=== PATIENT | female | born 1960 | race African-American/Black ===

== ENCOUNTER 2021-04-03 11:03 | Inpatient (IN) | payer OTHER ==
[~2021-04-03 11:03] MED LIST: SOLIFENACIN SUCCINATE 5 MG TAB PO SCH
[2021-04-03] MEDS ORDERED: SODIUM CHLORIDE 1,000 ML IV ONE (11:06)
[2021-04-03] MEDS ORDERED: ACETAMINOPHEN 1000 MG/100 ML VIAL IVPB ONE (11:07)
[2021-04-03] MEDS ORDERED: LACTATED RINGERS SOLUTION 1000 ML INFUS.BAG IV ONE (11:22)
[2021-04-03] MEDS ORDERED: VANCOMYCIN 1 GM in D5W (PRE-DOCKED) 1,000 MG/250 ML IVPB ONE (11:24)
[2021-04-03] MEDS ORDERED: PIPERACILLIN/TAZOB 3.375 GM 3.375 GM in DEXTROSE 5%-WATER - 50 ML IVPB ONE (11:25)
[2021-04-03 11:45] LABS: VENOUS BASE EXCESS -7.8 mmol/L (-2-2); VENOUS O2 SATURATION 70.5 % (70-80); VENOUS PCO2 27.4 mmHg (38-52); VENOUS PH 7.367 (7.310-7.410)
[2021-04-03 11:49] LABS: HEMATOCRIT 38.3 % (32.4-45.2); MCH 33.5 pg (25.7-33.7); MCHC 33.8 g/dl (32.0-36.0); MEAN PLT VOLUME 9.9 fl (7.5-11.1); PLATELET COUNT 144 10^3/uL (134-434); RBC 3.87 M/mm3 (3.60-5.2); RDW 13.8 % (11.6-15.6); WHITE BLOOD COUNT 10.3 K/mm3 (4.0-10.0)
[2021-04-03 11:56] LABS: INR 1.18 (0.83-1.09); PROTHROMBIN TIME (PATIENT) 13.8 SEC (9.7-13.0)
[2021-04-03] MEDS ORDERED: VANCOMYCIN 1 GRAM (PRE-DOCKED) 1,000 MG/250 ML BAG IVPB ONE (11:56)
[2021-04-03] MEDS ORDERED: PIPERACILLIN/TAZOB 3.375 GM 3.375 GM/50 ML BAG IVPB ONE ×2 (11:56→19:20)
[2021-04-03 11:59] LABS: ACTIVATED PTT 26.6 SECONDS (25.2-36.5)
[2021-04-03 12:13] LABS: ALBUMIN 3.2 g/dl (3.4-5.0)
[2021-04-03 12:14] LABS: BLOOD UREA NITROGEN 37.1 mg/dL (7-18)
[2021-04-03 12:17] LABS: CREATININE 1.9 mg/dL (0.55-1.3)
[2021-04-03 12:18] LABS: BILIRUBIN,TOTAL 1.4 mg/dL (0.2-1); TOT PROT 7.7 g/dl (6.4-8.2)
[2021-04-03 12:26] LABS: ANISOCYTOSIS 1+; MACROCYTOSIS 1+; PLATELET ESTIMATE DECREASED
[2021-04-03 12:29] LABS: LACTIC ACID 7.2 mmol/L (0.4-2.0)
[2021-04-03] MEDS ORDERED: POTASSIUM CHLORIDE TABS 20 MEQ TABLET.ER (FP) PO ONE (12:42)
[2021-04-03] MEDS ORDERED: POTASSIUM CHLORIDE ORAL LIQUID 20 MEQ/15 ML PO ONE (12:43)
[2021-04-03] MEDS ORDERED: POTASSIUM CHLORIDE ORAL LIQUID 20 MEQ/15 ML ONE (13:21)
[2021-04-03] MEDS ORDERED: SODIUM CHLORIDE 0.9% 500 ML INFUS.BAG IV ONE ×2 (13:41→18:17)
[2021-04-03 13:45] LABS: EPI CELLS 12 /uL (0-25.1); HYALINE CASTS 7 /uL (0-3.1); URINE APPEARANCE CLOUDY; URINE BACTERIA 8666 /uL (0-1359); URINE BILIRUBIN 1+ (NEGATIVE); URINE COLOR DK YELLOW; URINE GLUCOSE (UA) NEGATIVE (NEGATIVE); URINE KETONE TRACE (NEGATIVE); URINE LEUK ESTERASE 2+ (NEGATIVE); URINE NITRITE NEGATIVE (NEGATIVE); URINE PROTEIN 2+ (NEGATIVE); URINE RBC 6 /uL (0-23.9); URINE UROBILINOGEN 0.2 mg/dL (0.2-1.0); URINE WBC 270 /uL (0-25.8)
[2021-04-03 17:40] LABS: LACTIC ACID 7.9 mmol/L (0.4-2.0)
[2021-04-03 18:02] LABS: CALCIUM 8.1 mg/dL (8.5-10.1)
[2021-04-03 18:03] LABS: BLOOD UREA NITROGEN 36.6 mg/dL (7-18)
[2021-04-03 18:06] LABS: CREATININE 1.8 mg/dL (0.55-1.3)
[2021-04-03 19:19] LABS: MAGNESIUM 1.3 mg/dL (1.8-2.4)
[2021-04-03] MEDS ORDERED: KCL 10 MEQ IVPB 10 MEQ/100 ML INFUS.BAG IVPB ONE ×2 (19:20→21:52)
[2021-04-03 19:23] LABS: PHOSPHOROUS 2.5 mg/dL (2.5-4.9)
[2021-04-03] MEDS: PIPERACILLIN/TAZOB 3.375 GM 3.375 GM in DEXTROSE 5%-WATER - 50 ML IVPB SCH (19:25)
[2021-04-03] MEDS: KCL 10 MEQ IVPB 10 MEQ/100 ML INFUS.BAG IVPB SCH ×2 (20:15→22:37)
[2021-04-03] MEDS: SODIUM CHLORIDE 1,000 ML IV SCH (20:15)
[2021-04-03] MEDS ORDERED: SENNOSIDES/DOCUSATE COMBO (SENNA PLUS) TABLET (UD) PO SCH (22:00)
[2021-04-03] MEDS ORDERED: HEPARIN NA (PORCINE) 5,000 UNITS/ML 1ML VIAL ONE (22:40)
[2021-04-03] MEDS: HEPARIN NA (PORCINE) 5,000 UNITS/ML 1ML VIAL SQ SCH (22:50)
[2021-04-03] MEDS ORDERED: SODIUM CHLORIDE 250 ML IV STA (23:13)
[2021-04-03] MEDS ORDERED: MAGNESIUM SULF 50% (8.12 MEQ/2 ML-1 GM VIAL) IVPB ONE (23:23)
[2021-04-04] MEDS ORDERED: SODIUM CHLORIDE 1,000 ML IV STA (00:10)
[2021-04-04] MEDS: KCL 10 MEQ IVPB 10 MEQ/100 ML INFUS.BAG IVPB SCH ×3 (00:20→01:44)
[2021-04-04] MEDS: levETIRAcetam 500 MG/5 ML ORAL SOLUTION (UNIT-DOSE CUPS) PO SCH ×3 (00:35→22:32)
[2021-04-04] MEDS ORDERED: PT OWN MED DRAWER 7, Y5N ONE ×4 (01:09→19:50)
[2021-04-04] MEDS ORDERED: PIPERACILLIN/TAZOBACTAM 3.375 GM VIAL IVPB ONE ×2 (02:57→10:47)
[2021-04-04] MEDS ORDERED: DEXTROSE 5%-WATER - 50 ML IVPB ONE ×2 (02:58→10:48)
[2021-04-04] MEDS: PIPERACILLIN/TAZOB 3.375 GM 3.375 GM in DEXTROSE 5%-WATER - 50 ML IVPB SCH ×4 (03:00→14:00)
[2021-04-04 04:00] LABS: LACTIC ACID 3.5 mmol/L (0.4-2.0)
[2021-04-04 04:51] VITALS: BMI 41.1
[2021-04-04] MEDS: HEPARIN NA (PORCINE) 5,000 UNITS/ML 1ML VIAL SQ SCH ×3 (06:08→22:46)
[2021-04-04] MEDS ORDERED: ATOVAQUONE 750 MG/5 ML (UNIT-DOSE PACKAGING) PO SCH ×2 (08:00→10:00)
[2021-04-04 08:13] LABS: HEMOGLOBIN 10.1 GM/dL (10.7-15.3); MCH 33.4 pg (25.7-33.7); MCHC 33.7 g/dl (32.0-36.0); MEAN CELL VOLUME 99.1 fl (80-96); MEAN PLT VOLUME 10.7 fl (7.5-11.1); PLATELET COUNT 117 10^3/uL (134-434); RBC 3.03 M/mm3 (3.60-5.2); RDW 14.1 % (11.6-15.6); WHITE BLOOD COUNT 15.8 K/mm3 (4.0-10.0)
[2021-04-04 08:47] LABS: BLOOD UREA NITROGEN 24.4 mg/dL (7-18); CALCIUM 7.6 mg/dL (8.5-10.1); MAGNESIUM 2.4 mg/dL (1.8-2.4)
[2021-04-04 08:50] LABS: CREATININE 0.8 mg/dL (0.55-1.3)
[2021-04-04 08:51] LABS: PHOSPHOROUS 2.3 mg/dL (2.5-4.9)
[2021-04-04 08:52] LABS: BILIRUBIN,TOTAL 1.4 mg/dL (0.2-1); TOT PROT 6.1 g/dl (6.4-8.2)
[2021-04-04 09:11] LABS: ALBUMIN 2.4 g/dl (3.4-5.0)
[2021-04-04] MEDS ORDERED: ENOXAPARIN NA (PORCINE) 40 MG/0.4 ML DISP.SYRIN SQ SCH (10:00)
[2021-04-04] MEDS: ASPIRIN COATED 81 MG TABLET.EC PO SCH (10:15)
[2021-04-04 10:25] LABS: ANISOCYTOSIS 1+; MACROCYTOSIS 0; OVALOCYTE 1+; PLATELET ESTIMATE DECREASED
[2021-04-04] MEDS ORDERED: ALBUTEROL SO4 2.5/IPRATROPIUM 0.5 INH SOL 3 ML VIAL.NEB. NEB PRN (10:31)
[2021-04-04] MEDS: SOLIFENACIN SUCCINATE 5 MG TAB PO SCH (10:46)
[2021-04-04] MEDS: BICTEGRAV/EMTRICIT/TENOFOV (BIKTARVY) 50-200-25 MG TABLET PO SCH (10:46)
[2021-04-04] MEDS: ACETAMINOPHEN 1000 MG/100 ML VIAL IVPB PRN (11:12)
[2021-04-04] MEDS: TAMSULOSIN HCL 0.4 MG CAP PO SCH (11:16)
[2021-04-04 12:54] LABS: LACTIC ACID 2.1 mmol/L (0.4-2.0)
[2021-04-04] MEDS: SODIUM CHLORIDE 1,000 ML IV SCH (15:57)
[2021-04-04] MEDS ORDERED: LACTATED RINGERS SOLUTION 1,000 ML/1,000 ML INFUS.BAG IV SCH (18:00)
[2021-04-04] MEDS ORDERED: DEXTROSE 5%-WATER 100 ML IVPB ONE (18:07)
[2021-04-04] MEDS ORDERED: PIPERACILLIN/TAZOBACTAM 4.5 GM VIAL IVPB ONE (18:07)
[2021-04-04] MEDS: PIPERACILLIN/TAZOB 4.5 GM 4.5 GM in DEXTROSE 5%-WATER 100 ML IVPB SCH (18:19)
[2021-04-05] MEDS: PIPERACILLIN/TAZOB 4.5 GM 4.5 GM in DEXTROSE 5%-WATER 100 ML IVPB SCH ×3 (02:00→17:24)
[2021-04-05] MEDS ORDERED: PIPERACILLIN/TAZOBACTAM 4.5 GM VIAL IVPB ONE ×3 (05:12→17:10)
[2021-04-05] MEDS ORDERED: DEXTROSE 5%-WATER 100 ML IVPB ONE ×3 (05:12→17:11)
[2021-04-05] MEDS: HEPARIN NA (PORCINE) 5,000 UNITS/ML 1ML VIAL SQ SCH ×2 (05:20→14:29)
[2021-04-05 07:27] LABS: HEMATOCRIT 28.2 % (32.4-45.2); HEMOGLOBIN 9.5 GM/dL (10.7-15.3); MCH 33.5 pg (25.7-33.7); MCHC 33.8 g/dl (32.0-36.0); MEAN PLT VOLUME 11.3 fl (7.5-11.1); PLATELET COUNT 102 10^3/uL (134-434); RBC 2.85 M/mm3 (3.60-5.2); RDW 14.5 % (11.6-15.6); WHITE BLOOD COUNT 18.2 K/mm3 (4.0-10.0)
[2021-04-05 07:30] LABS: INR 1.06 (0.83-1.09); PROTHROMBIN TIME (PATIENT) 11.9 SEC (9.7-13.0)
[2021-04-05 07:45] LABS: CALCIUM 7.8 mg/dL (8.5-10.1)
[2021-04-05 07:49] LABS: BILIRUBIN,TOTAL 1.1 mg/dL (0.2-1); TOT PROT 5.5 g/dl (6.4-8.2)
[2021-04-05] MEDS: AMINO ACIDS/PROTEIN HYDROLYS 30 ML LIQUID.PKT PO SCH (08:04)
[2021-04-05] MEDS: ATOVAQUONE 750 MG/5 ML (UNIT-DOSE PACKAGING) PO SCH (08:08)
[2021-04-05] MEDS ORDERED: PT OWN MED DRAWER 7, Y5N ONE (08:17)
[2021-04-05] MEDS: TAMSULOSIN HCL 0.4 MG CAP PO SCH (08:30)
[2021-04-05 09:48] LABS: ANISOCYTOSIS 0; HELMET CELLS 0; HOWELL-JOLLY BODIES 0; MACROCYTOSIS 0; OVALOCYTE 0; PLATELET ESTIMATE DECREASED; ROULEAU 0; SICKELED CELLS 0; TARGET CELLS 0; TEAR DROP CELLS 0; TOXIC GRANULATION 0
[2021-04-05] MEDS ORDERED: PATIENT'S OWN MEDICATION (NON-FORMULARY) (Vit A/Vitamin D3/E/Aloe V/Zinc [Periguard Ointme TP SCH (10:00)
[2021-04-05] MEDS: ASPIRIN COATED 81 MG TABLET.EC PO SCH (10:04)
[2021-04-05] MEDS: levETIRAcetam 500 MG/5 ML ORAL SOLUTION (UNIT-DOSE CUPS) PO SCH ×2 (10:05→22:18)
[2021-04-05] MEDS: MULTIVIT-MINERALS ORAL LIQUID PO SCH (10:06)
[2021-04-05] MEDS: SOLIFENACIN SUCCINATE 5 MG TAB PO SCH (10:07)
[2021-04-05] MEDS: BICTEGRAV/EMTRICIT/TENOFOV (BIKTARVY) 50-200-25 MG TABLET PO SCH (10:07)
[2021-04-05] MEDS: ASCORBIC ACID 500 MG TABLET (FP) PEG SCH (11:14)
[2021-04-05] MEDS ORDERED: LACTATED RINGERS SOLUTION 1,000 ML/1,000 ML INFUS.BAG IV SCH (12:56)
[2021-04-05] MEDS ORDERED: DEXTROSE 5%-LACTATED RINGERS 1,000 ML IV SCH (16:15)
[2021-04-06] MEDS: HEPARIN NA (PORCINE) 5,000 UNITS/ML 1ML VIAL SQ SCH ×4 (06:30→21:56)
[2021-04-06] MEDS: PIPERACILLIN/TAZOB 4.5 GM 4.5 GM in DEXTROSE 5%-WATER 100 ML IVPB SCH ×5 (06:32→17:49)
[2021-04-06] MEDS ORDERED: PIPERACILLIN/TAZOBACTAM 4.5 GM VIAL IVPB ONE ×2 (08:11→14:56)
[2021-04-06] MEDS ORDERED: DEXTROSE 5%-WATER 100 ML IVPB ONE ×2 (08:12→14:56)
[2021-04-06 08:30] LABS: BASO % 0.4 % (0-2.0); EOS % 1.4 % (0-4.5); HEMATOCRIT 28.6 % (32.4-45.2); HEMOGLOBIN 9.8 GM/dL (10.7-15.3); LYMPH % 4.8 % (8-40); MCH 33.3 pg (25.7-33.7); MCHC 34.3 g/dl (32.0-36.0); MEAN CELL VOLUME 97.3 fl (80-96); MEAN PLT VOLUME 11.2 fl (7.5-11.1); NEUT % 89.4 % (42.8-82.8); PLATELET COUNT 125 10^3/uL (134-434); RBC 2.94 M/mm3 (3.60-5.2); RDW 14.2 % (11.6-15.6); WHITE BLOOD COUNT 15.5 K/mm3 (4.0-10.0)
[2021-04-06] MEDS: AMINO ACIDS/PROTEIN HYDROLYS 30 ML LIQUID.PKT PO SCH (08:30)
[2021-04-06] MEDS: ATOVAQUONE 750 MG/5 ML (UNIT-DOSE PACKAGING) PO SCH (08:49)
[2021-04-06 09:13] LABS: BLOOD UREA NITROGEN 14.1 mg/dL (7-18); CALCIUM 7.8 mg/dL (8.5-10.1); MAGNESIUM 1.7 mg/dL (1.8-2.4)
[2021-04-06 09:17] LABS: CREATININE 1.2 mg/dL (0.55-1.3)
[2021-04-06 09:19] LABS: BILIRUBIN,TOTAL 1.4 mg/dL (0.2-1); TOT PROT 5.5 g/dl (6.4-8.2)
[2021-04-06] MEDS: ASPIRIN COATED 81 MG TABLET.EC PO SCH (09:30)
[2021-04-06] MEDS: ASCORBIC ACID 500 MG TABLET (FP) PEG SCH (09:30)
[2021-04-06] MEDS: TAMSULOSIN HCL 0.4 MG CAP PO SCH (09:30)
[2021-04-06] MEDS: MULTIVIT-MINERALS ORAL LIQUID PO SCH (09:31)
[2021-04-06] MEDS: BICTEGRAV/EMTRICIT/TENOFOV (BIKTARVY) 50-200-25 MG TABLET PO SCH (09:31)
[2021-04-06] MEDS: SOLIFENACIN SUCCINATE 5 MG TAB PO SCH (09:31)
[2021-04-06] MEDS: levETIRAcetam 500 MG/5 ML ORAL SOLUTION (UNIT-DOSE CUPS) PO SCH ×2 (09:31→21:57)
[2021-04-06] MEDS ORDERED: SODIUM CHLORIDE 0.45% 1,000 ML IV SCH (14:00)
[2021-04-06] MEDS: ACETAMINOPHEN 1000 MG/100 ML VIAL IVPB PRN (21:17)
[2021-04-06] MEDS ORDERED: PT OWN MED DRAWER 7, Y5N ONE (21:45)
[2021-04-06] MEDS ORDERED: GABAPENTIN 100 MG CAPSULE PO ONE (23:16)
[2021-04-07] MEDS ORDERED: DEXTROSE 5%-WATER 100 ML IVPB ONE ×2 (01:29→08:37)
[2021-04-07] MEDS ORDERED: PIPERACILLIN/TAZOBACTAM 4.5 GM VIAL IVPB ONE ×2 (01:29→08:37)
[2021-04-07] MEDS: PIPERACILLIN/TAZOB 4.5 GM 4.5 GM in DEXTROSE 5%-WATER 100 ML IVPB SCH ×2 (01:50→09:54)
[2021-04-07] MEDS: HEPARIN NA (PORCINE) 5,000 UNITS/ML 1ML VIAL SQ SCH ×2 (06:02→21:11)
[2021-04-07 07:55] LABS: HEMATOCRIT 29.3 % (32.4-45.2); HEMOGLOBIN 10.1 GM/dL (10.7-15.3); MCH 33.8 pg (25.7-33.7); MCHC 34.4 g/dl (32.0-36.0); MEAN CELL VOLUME 98.2 fl (80-96); MEAN PLT VOLUME 10.8 fl (7.5-11.1); PLATELET COUNT 146 10^3/uL (134-434); RBC 2.98 M/mm3 (3.60-5.2); RDW 14.1 % (11.6-15.6); WHITE BLOOD COUNT 9.4 K/mm3 (4.0-10.0)
[2021-04-07 08:12] LABS: BLOOD UREA NITROGEN 11.2 mg/dL (7-18); CALCIUM 7.6 mg/dL (8.5-10.1); MAGNESIUM 1.6 mg/dL (1.8-2.4)
[2021-04-07 08:15] LABS: CREATININE 1.1 mg/dL (0.55-1.3); PHOSPHOROUS 2.4 mg/dL (2.5-4.9)
[2021-04-07 08:17] LABS: BILIRUBIN,TOTAL 1.3 mg/dL (0.2-1); TOT PROT 5.7 g/dl (6.4-8.2)
[2021-04-07] MEDS: BICTEGRAV/EMTRICIT/TENOFOV (BIKTARVY) 50-200-25 MG TABLET PO SCH (09:00)
[2021-04-07] MEDS: SOLIFENACIN SUCCINATE 5 MG TAB PO SCH (09:00)
[2021-04-07] MEDS: ATOVAQUONE 750 MG/5 ML (UNIT-DOSE PACKAGING) PO SCH (09:00)
[2021-04-07] MEDS: ASCORBIC ACID 500 MG TABLET (FP) PEG SCH (09:00)
[2021-04-07] MEDS ORDERED: MAGNESIUM SULF 50% (8.12 MEQ/2 ML-1 GM VIAL) IVPB ONE (09:22)
[2021-04-07] MEDS: AMINO ACIDS/PROTEIN HYDROLYS 30 ML LIQUID.PKT PO SCH (09:56)
[2021-04-07] MEDS: TAMSULOSIN HCL 0.4 MG CAP PO SCH (09:56)
[2021-04-07] MEDS: ASPIRIN COATED 81 MG TABLET.EC PO SCH (09:56)
[2021-04-07] MEDS ORDERED: POTASSIUM PHOSPHATE 30 MM in DEXTROSE 5%-WATER - 500 ML IVPB ONE (10:00)
[2021-04-07] MEDS: levETIRAcetam 500 MG/5 ML ORAL SOLUTION (UNIT-DOSE CUPS) PO SCH ×2 (10:00→21:11)
[2021-04-07 11:04] LABS: ANISOCYTOSIS 1+; MACROCYTOSIS 0; OVALOCYTE 1+; PLATELET ESTIMATE DECREASED
[2021-04-07] MEDS ORDERED: PROMETHAZINE HCL 25 MG/1 ML VIAL IVPUSH PRN ×2 (16:33→18:02)
[2021-04-07] MEDS ORDERED: ONDANSETRON 4 MG/2 ML VIAL IVPUSH PRN ×2 (16:33→18:02)
[2021-04-07] MEDS ORDERED: ACETAMINOPHEN 1000 MG/100 ML VIAL IVPB ONE ×2 (16:34→18:02)
[2021-04-07] MEDS ORDERED: PROPOFOL 20 ML ONE (16:39)
[2021-04-07] MEDS ORDERED: MIDAZOLAM HCL 2 MG/2 ML SINGLE DOSE VIAL ONE (16:39)
[2021-04-07] MEDS ORDERED: LIDOCAINE HCL/PF 2% SDV 5ML VIAL ONE (16:40)
[2021-04-07] MEDS ORDERED: DEXAMETHASONE SOD PHOSPHATE 4 MG/1 ML VIAL ONE (16:40)
[2021-04-07] MEDS ORDERED: GLYCOPYRROLATE 0.2 MG/1 ML VIAL ONE (16:40)
[2021-04-07] MEDS ORDERED: LACTATED RINGERS SOLUTION 1,000 ML IV SCH (16:45)
[2021-04-07] MEDS ORDERED: ACETAMINOPHEN 1000 MG/100 ML VIAL IVPB PRN (18:02)
[2021-04-07] MEDS ORDERED: ALBUTEROL SO4 2.5/IPRATROPIUM 0.5 INH SOL 3 ML VIAL.NEB. NEB PRN (18:02)
[2021-04-07] MEDS: LACTATED RINGERS SOLUTION 1,000 ML IV SCH (18:43)
[2021-04-08] MEDS ORDERED: DEXTROSE 5%-WATER 100 ML IVPB ONE ×3 (00:46→16:39)
[2021-04-08] MEDS ORDERED: PIPERACILLIN/TAZOBACTAM 4.5 GM VIAL IVPB ONE ×3 (00:46→16:39)
[2021-04-08] MEDS: PIPERACILLIN/TAZOB 4.5 GM 4.5 GM in DEXTROSE 5%-WATER 100 ML IVPB SCH ×3 (01:07→18:13)
[2021-04-08] MEDS: LACTATED RINGERS SOLUTION 1,000 ML IV SCH ×3 (06:40→23:13)
[2021-04-08] MEDS: HEPARIN NA (PORCINE) 5,000 UNITS/ML 1ML VIAL SQ SCH ×3 (07:09→21:14)
[2021-04-08] MEDS ORDERED: PT OWN MED DRAWER 7, Y5N ONE ×4 (08:17→15:50)
[2021-04-08] MEDS: AMINO ACIDS/PROTEIN HYDROLYS 30 ML LIQUID.PKT PO SCH (08:56)
[2021-04-08] MEDS: TAMSULOSIN HCL 0.4 MG CAP PO SCH (08:57)
[2021-04-08] MEDS: ASCORBIC ACID 500 MG TABLET (FP) PEG SCH (09:01)
[2021-04-08] MEDS: SOLIFENACIN SUCCINATE 5 MG TAB PO SCH (09:01)
[2021-04-08] MEDS: levETIRAcetam 500 MG/5 ML ORAL SOLUTION (UNIT-DOSE CUPS) PO SCH ×2 (09:02→21:14)
[2021-04-08] MEDS: MULTIVIT-MINERALS ORAL LIQUID PO SCH (09:02)
[2021-04-08] MEDS: ASPIRIN COATED 81 MG TABLET.EC PO SCH (09:03)
[2021-04-08] MEDS ORDERED: PATIENT'S OWN MEDICATION (NON-FORMULARY) (Vit A/Vitamin D3/E/Aloe V/Zinc [Periguard Ointme TP SCH (10:00)
[2021-04-08 10:12] LABS: HEMATOCRIT 30.2 % (32.4-45.2); HEMOGLOBIN 10.3 GM/dL (10.7-15.3); MCH 33.4 pg (25.7-33.7); MEAN PLT VOLUME 10.3 fl (7.5-11.1); PLATELET COUNT 175 10^3/uL (134-434); RBC 3.08 M/mm3 (3.60-5.2); RDW 13.9 % (11.6-15.6); WHITE BLOOD COUNT 9.4 K/mm3 (4.0-10.0)
[2021-04-08 10:33] LABS: BLOOD UREA NITROGEN 6.6 mg/dL (7-18); CALCIUM 8.1 mg/dL (8.5-10.1)
[2021-04-08 10:34] LABS: MAGNESIUM 1.9 mg/dL (1.8-2.4)
[2021-04-08 10:37] LABS: CREATININE 0.6 mg/dL (0.55-1.3); PHOSPHOROUS 2.8 mg/dL (2.5-4.9)
[2021-04-08 10:38] LABS: BILIRUBIN,TOTAL 0.7 mg/dL (0.2-1); TOT PROT 5.8 g/dl (6.4-8.2)
[2021-04-08] MEDS: ATOVAQUONE 750 MG/5 ML (UNIT-DOSE PACKAGING) PO SCH (15:38)
[2021-04-08] MEDS: BICTEGRAV/EMTRICIT/TENOFOV (BIKTARVY) 50-200-25 MG TABLET PO SCH (15:39)
[2021-04-09] MEDS ORDERED: PIPERACILLIN/TAZOBACTAM 4.5 GM VIAL IVPB ONE ×2 (00:18→08:31)
[2021-04-09] MEDS ORDERED: DEXTROSE 5%-WATER 100 ML IVPB ONE ×2 (00:18→08:31)
[2021-04-09] MEDS: PIPERACILLIN/TAZOB 4.5 GM 4.5 GM in DEXTROSE 5%-WATER 100 ML IVPB SCH ×3 (01:13→18:42)
[2021-04-09] MEDS: HEPARIN NA (PORCINE) 5,000 UNITS/ML 1ML VIAL SQ SCH ×3 (05:39→21:10)
[2021-04-09] MEDS ORDERED: PT OWN MED DRAWER 7, Y5N ONE ×2 (08:30→21:08)
[2021-04-09] MEDS: ATOVAQUONE 750 MG/5 ML (UNIT-DOSE PACKAGING) PO SCH (08:55)
[2021-04-09] MEDS: AMINO ACIDS/PROTEIN HYDROLYS 30 ML LIQUID.PKT PO SCH (08:56)
[2021-04-09] MEDS: TAMSULOSIN HCL 0.4 MG CAP PO SCH (08:56)
[2021-04-09] MEDS: MULTIVIT-MINERALS ORAL LIQUID PO SCH (09:01)
[2021-04-09] MEDS: ASCORBIC ACID 500 MG TABLET (FP) PEG SCH (09:02)
[2021-04-09] MEDS: SOLIFENACIN SUCCINATE 5 MG TAB PO SCH (09:02)
[2021-04-09] MEDS: levETIRAcetam 500 MG/5 ML ORAL SOLUTION (UNIT-DOSE CUPS) PO SCH ×2 (09:03→21:09)
[2021-04-09] MEDS: ASPIRIN COATED 81 MG TABLET.EC PO SCH (09:05)
[2021-04-09] MEDS: BICTEGRAV/EMTRICIT/TENOFOV (BIKTARVY) 50-200-25 MG TABLET PO SCH (09:05)
[2021-04-09] MEDS: LACTATED RINGERS SOLUTION 1,000 ML IV SCH (18:42)
[2021-04-09 21:24] VITALS: BP 156/97; PULSE 69; TEMP 98.1
[2021-04-17 17:00] LABS: WEIGHT 66
[2021-04-17 17:01] LABS: CA OXALATE MONOHYDR. 10%
== END 2021-04-09 21:52 | DRG 710 ==
LOC: JER 11:03 → JERBED 14:42 → J4W 23:44
PROVIDERS: ADMIT Internal Medicine; ATTEND Internal Medicine
PROC: BT1DYZZ Fluoroscopy of Right Kidney, Ureter and Bladder using Other Contrast (ICD-10-PCS; 2021-04-07)
PROC: 0TC68ZZ Extirpation of Matter from Right Ureter, Via Natural or Artificial Opening Endoscopic (ICD-10-PCS; principal; 2021-04-07 15:30)
PROC: 0T768DZ Dilation of Right Ureter with Intraluminal Device, Via Natural or Artificial Opening Endoscopic (ICD-10-PCS; 2021-04-07 15:30)
DX: A41.51 Sepsis due to Escherichia coli [E. coli] (principal); K21.9 Gastro-esophageal reflux disease without esophagitis; J44.9 Chronic obstructive pulmonary disease, unspecified; J96.10 Chronic respiratory failure, unspecified whether with hypoxia or hypercapnia; N39.0 Urinary tract infection, site not specified; N17.9 Acute kidney failure, unspecified; E87.2 Acidosis; G40.909 Epilepsy, unspecified, not intractable, without status epilepticus; Z21 Asymptomatic human immunodeficiency virus [HIV] infection status; N13.30 Unspecified hydronephrosis; E87.6 Hypokalemia; I24.8 Other forms of acute ischemic heart disease; R13.10 Dysphagia, unspecified; N18.9 Chronic kidney disease, unspecified; N13.2 Hydronephrosis with renal and ureteral calculous obstruction; J98.11 Atelectasis
CPT/HCPCS: 36415; 71045-TC-FY; 74176-TC; 76000-TC-FY; 76775-TC; 80048; 80053; 81003; 82360; 82803; 83036; 83605; 83735; 84100; 84484; 85025; 85027; 85610; 85730; 87040; 87086; 87186; 87324; 87449; 88300-TC; 93005; 93010; 94760; 99285-25; C9803; J0131; J1644; U0003; U0005